=== PATIENT | male | born 1960 | race African-American/Black ===

== ENCOUNTER 2022-09-06 18:38 | Emergency (ER) | payer SELFPAY ==
[~2022-09-06] VITALS: Ht 185.4 cm; Wt 95.0 kg
[2022-09-06 18:51] VITALS: O2SAT 99
[2022-09-06 19:15] LABS: BASOPHILS % 0.5 % (0.0-2.0); HEMATOCRIT. 40.4 % (42.0-52.0); HEMOGLOBIN. 13.8 g/dL (14.0-18.0); LYMPHOCYTES % 38.8 % (20.0-50.0); MEAN CORPUSCULAR HEMOGLOBIN 27.6 pg (28.0-32.0); MEAN PLATELET VOLUME 8.2 fl (7.4-10.4); MONOCYTES % 6.8 % (2.0-8.0); NEUTROPHILS % 52.9 % (40.0-76.0); PLATELET 214 x1000/uL (130-400); RED BLOOD CELL COUNT 4.99 mill/uL (4.7-6.1); RED CELL DISTRIBUTION WIDTH 13.7 % (11.6-14.6)
[2022-09-06 19:19] LABS: CHLORIDE 102 mEq/L (98-107)
[2022-09-06 19:29] LABS: BETA HYDROXYBUTYRATE 0.3 mMol/L (0.0-0.3)
[2022-09-06 19:42] LABS: PROTHROMBIN TIME 10.9 sec (9.6-11.0)
[2022-09-06] MEDS ORDERED: SODIUM CHLORIDE 0.9% 1,000 ML IV ONE (20:15)
[2022-09-06 23:10] LABS: CLARITY URINE CLEAR (CLEAR); COLOR URINE YELLOW (YELLOW); KETONES URINE TRACE (NEGATIVE); LEUKOCYTE ESTERASE URINE NEGATIVE (NEGATIVE); NITRITE URINE NEGATIVE (NEGATIVE); OCCULT BLOOD URINE NEGATIVE (NEGATIVE); PH URINE 5.5 (4.5-8.0); PROTEIN URINE NEGATIVE (NEGATIVE); SPECIFIC GRAVITY URINE 1.037 (1.005-1.030); UROBILINOGEN URINE 0.2 E.U./dL (0.2-1.0)
[2022-09-06] MEDS ORDERED: INSULIN REGULAR (HUMULIN R) 300UNITS/3ML VIAL SUBCUT ONE (23:15)
[2022-09-07] VITALS: BP 128/70; PULSE 59; RESP 14; TEMP 98.3
== END 2022-09-07 01:05 | disposition home or self-care (01) ==
LOC: ER 18:38
DX: E11.65 Type 2 diabetes mellitus with hyperglycemia (principal); E86.0 Dehydration; Z20.822 Contact with and (suspected) exposure to COVID-19
CPT/HCPCS: 80053; 81003; 82010; 82962; 85025; 85610; 84484; 36415; 71045; 70450; 82803; 96372; 99285; 87426; J1815; J7030; C9803; Z7610